=== PATIENT | male | born 1980 | race Two or more races ===

== ENCOUNTER 2023-11-12 23:28 | Emergency (ER) | payer OTHER ==
[2023-11-12 23:35] VITALS: BP 164/93; PULSE 72; RESP 18; TEMP 97.9; BMI 25.8
== END 2023-11-13 00:58 | disposition home or self-care (01) ==
LOC: JER 23:28 → JERFT 23:28
DX: R05.1 Acute cough (principal); B34.9 Viral infection, unspecified; R50.9 Fever, unspecified; Z20.822 Contact with and (suspected) exposure to COVID-19
CPT/HCPCS: 0241U-QW; 99283-25